=== PATIENT | male | born 1975 | race Caucasian/White ===

== ENCOUNTER 2025-05-11 14:53 | Inpatient (IN) | payer BC ==
[~2025-05-11] VITALS: Ht 182.9 cm; Wt 130.4 kg
[2025-05-11] MEDS ORDERED: HYDR-3490 PO (15:14)
[2025-05-11] MEDS ORDERED: LISI30TA4 PO (15:14)
[2025-05-11] MEDS ORDERED: ATOR1TAB19 PO (15:14)
[2025-05-11] MEDS ORDERED: ASPI81TA26 PO (15:14)
[2025-05-11] MEDS: METOPROLOL 5 MG/5 ML VIAL IV STA ×2 (15:40→15:48)
[2025-05-11 16:03] LABS: BASO # 0.0 10^3/uL (0.0-0.2); BASO % 0.3 % (0.0-1.0); EOS # 0.2 10^3/uL (0.0-0.5); EOS % 2.0 % (0.0-3.0); LYMPH # 2.7 10^3/uL (1.5-5.0); LYMPH % 28.9 % (24.0-44.0); MONO # 1.0 10^3/uL (0.0-0.8); MONO % 11.1 % (2.0-8.0); NEUTROPHILS # 5.4 10^3/uL (1.5-8.5); NEUTROPHILS % 57.4 % (36.0-66.0); PLATELET COUNT, AUTOMATED 347 10^3/uL (150-450)
[2025-05-11] MEDS: METOPROLOL 5 MG/5 ML VIAL IV SCH (16:22)
[2025-05-11 16:25] LABS: CK-MB VALUE MASS 3.9 NG/ML (<3.6)
[2025-05-11 16:27] LABS: CALCIUM LEVEL 9.0 MG/DL (8.5-10.1); CARBON DIOXIDE LEVEL 26.0 MMOL/L (20-31); CHLORIDE LEVEL 106.0 MMOL/L (98-107); CREATININE FOR GFR 1.09 MG/DL (0.70-1.30); GLOMERULAR FILTRATION RATE 82.7 (>56); POTASSIUM SERUM 3.9 MMOL/L (3.5-5.1); SODIUM LEVEL 142.0 MMOL/L (136-145)
[2025-05-11] MEDS: METOPROLOL TART 50 MG TAB PO ONE (16:27)
[2025-05-11 16:29] LABS: FREE T4 1.2 NG/DL (0.89-1.76)
[2025-05-11 16:35] LABS: CPK CREATINE PHOSPHOKINASE 136.0 U/L (46-171); MB/CK RELATIVE INDEX 2.86 (< OR =4)
[2025-05-11] MEDS ORDERED: ISOVUE-370 76% 100 ML VIAL As Ordered ONE (17:23)
[2025-05-11] MEDS ORDERED: HOME MED LIST COMPLETE! XX SCH (18:05)
[2025-05-11] MEDS: AMIODARONE HCL 150 MG in IV 1 EA IV SCH ×2 (18:42→22:55)
[2025-05-11 22:51] LABS: MAGNESIUM LEVEL 1.9 MG/DL (1.8-2.4)
[2025-05-11] MEDS: MAG SULF 1GM/100ML (MAG RUN) 1 GM in IV 1 EA IV ONE (23:11)
[2025-05-12] MEDS: NS (Normal Saline) 0.9% 1,000 ML IV ONE ×2 (00:13→06:43)
[2025-05-12] MEDS ORDERED: MOM 30 ML SUSPENSION UDC PO PRN (03:20)
[2025-05-12] MEDS ORDERED: ACETAMINOPHEN 325 MG TAB PO PRN (03:20)
[2025-05-12] MEDS ORDERED: MAALOX 30 ML SUSP *UDC PO PRN (03:20)
[2025-05-12] MEDS: METOPROLOL TART 25 MG TABLET PO SCH (06:00)
[2025-05-12] MEDS: DOCUSATE SODIUM 100 MG CAPSULE PO SCH (07:37)
[2025-05-12] MEDS: NS (Normal Saline) 0.9% 1,000 ML IV SCH (07:37)
[2025-05-12] MEDS: ASPIRIN 81 MG ENTERIC TABLET PO SCH (07:37)
[2025-05-12] MEDS: ATORVASTATIN 10 MG TAB PO SCH (07:37)
[2025-05-12] MEDS: APIXABAN 5 MG TAB PO SCH (07:37)
[2025-05-12 15:19] VITALS: BP 128/76; TEMP 98.6; O2SAT 98
[2025-05-12 19:48] VITALS: BP 129/65; O2SAT 97
[2025-05-12 20:27] VITALS: TEMP 97.6
[2025-05-12 23:36] VITALS: BP 115/60; TEMP 97.7; O2SAT 97
[2025-05-13 03:44] VITALS: BP 119/68; TEMP 97.7; O2SAT 98
[2025-05-13 06:14] LABS: BASO # 0.0 10^3/uL (0.0-0.2); BASO % 0.1 % (0.0-1.0); EOS # 0.3 10^3/uL (0.0-0.5); EOS % 3.4 % (0.0-3.0); LYMPH # 2.2 10^3/uL (1.5-5.0); LYMPH % 29.5 % (24.0-44.0); MONO # 0.7 10^3/uL (0.0-0.8); MONO % 9.7 % (2.0-8.0); NEUTROPHILS # 4.2 10^3/uL (1.5-8.5); NEUTROPHILS % 57.2 % (36.0-66.0); PLATELET COUNT, AUTOMATED 295 10^3/uL (150-450)
[2025-05-13 06:49] LABS: CALCIUM LEVEL 8.2 MG/DL (8.5-10.1); CARBON DIOXIDE LEVEL 25 MMOL/L (20-31); CHLORIDE LEVEL 107 MMOL/L (98-107); CREATININE FOR GFR 0.95 MG/DL (0.70-1.30); GLOMERULAR FILTRATION RATE > 90.0 (>56); MAGNESIUM LEVEL 1.9 MG/DL (1.8-2.4); POTASSIUM SERUM 4.5 MMOL/L (3.5-5.1); SODIUM LEVEL 142 MMOL/L (136-145)
[2025-05-13 07:39] VITALS: BP 121/71; TEMP 97.6; O2SAT 96
[2025-05-13] MEDS ORDERED: METO1TAB87 PO (11:41)
[2025-05-13] MEDS ORDERED: ELIQ5TAB PO (11:41)
[2025-05-13 12:36] VITALS: BP 118/62; TEMP 97.7; O2SAT 97
[2025-05-13 13:09] VITALS: BP 131/71
== END 2025-05-13 14:47 | disposition home or self-care (01) | DRG 201 ==
LOC: M ED 14:53 → M ED INP 05-12 03:19 → M PCU 05-12 15:13
PROVIDERS: ADMIT Student in an Organized Health Care Education/Training Program; ATTEND Student in an Organized Health Care Education/Training Program
PROC: B246ZZZ Ultrasonography of Right and Left Heart (ICD-10-PCS; principal; 2025-05-12)
DX: I48.91 Unspecified atrial fibrillation (principal); I10 Essential (primary) hypertension; E78.5 Hyperlipidemia, unspecified; F10.90 Alcohol use, unspecified, uncomplicated; Z79.82 Long term (current) use of aspirin; Z79.899 Other long term (current) drug therapy; Z71.41 Alcohol abuse counseling and surveillance of alcoholic